=== PATIENT | female | born 2000 | race Two or more races ===

== ENCOUNTER 2024-12-25 22:47 | Emergency (ER) | payer MEDICAID, OTHER ==
[~2024-12-25] VITALS: Ht 152.4 cm; Wt 72.3 kg
--- NOTE | 2024-12-25 23:11 | ED.PDOC ---
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 Patient is a , approximately 10 weeks by LMP. States she has been having scant vaginal discharge for the past week. Three days ago having vaginal spotting, with mild lower abdominal cramping pain. Denies any profuse vaginal bleeding. Denies any fever or urinary symptoms REVIEW OF SYSTEMS: General: No fever, no chills, or fatigue HEENT: No sore throat, no earache, no congestion, no neck pain. Cardiac: No chest pain. No palpitations. Lungs: No shortness of breath, no cough. GI: No nausea, no vomiting, no diarrhea, no constipation, (+) abdominal pain/ cramping : No dysuria, frequency, or urgency. No hematuria. (+) vaginal discharge/ b leeding Musculoskeletal: No joint pain , no joint swelling, no extremity edema. Skin: No rash, no itching. Neuro: No headache, no dizziness, no weakness PHYSICAL EXAM: General: Awake, alert and oriented. No acute distress. Skin: Skin in warm, dry and intact without rashes or lesions. HEENT: The head is normocephalic and atraumatic. Conjunctivae are clear without exudates or hemorrhage. Sclera is non-icteric. Neck: Normal range of motion. No JVD. Cardiac: Regular rate Respiratory: No signs of respiratory distress. No Stridor. Abdominal: Mild suprapubic tenderness to palpation. No guarding or rigidity. Neurological: The patient is awake, alert and oriented to person, place, and time with normal speech. Speech is clear. There is no facial asymmetry. Psychiatric: Appropriate mood and affect. Good judgement and insight. 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 Was a procedure done?: No Differential Diagnosis (SET UP MACHINIST) Vaginal Bleeding: - Missed, - Threatened, Ectopic , UTI X-Ray, Labs, Meds, VS Vital Signs Date Time Temp Pulse Resp B/P (MAP) Pulse Ox O2 Delivery O2 Flow Rate FiO2 12/26/24 01:45 98.4 85 20 122/87 (99) 96 98.4 12/26/24 01:45 95 20 96 Room Air 12/25/24 22:47 98.9 102 18 141/79 100 98.9 Lab Test 12/25/24 23:10 Range/Units White Blood Count 8.4 4.4-10.8 10^3/uL Red Blood Count 4.13 4.0-5.20 10^6/uL Hemoglobin 13.0 12.2-16.2 g/dL Hematocrit 38.2 36.0-46.0 % Mean Corpuscular Volume 92.6 80.0-100.0 fL Mean Corpuscular Hemoglobin 31.4 28.0-32.0 pg Mean Corpuscular Hemoglobin Concent 33.9 32.0-36.0 g/dL Red Cell Distribution Width 12.8 11.8-14.3 % Platelet Count 335 140-450 10^3/uL Mean Platelet Volume 8.0 6.9-10.8 fL Neutrophils (%) (Auto) 62.9 37.0-80.0 % Lymphocytes (%) (Auto) 24.6 10.0-50.0 % Monocytes (%) (Auto) 8.2 0.0-12.0 % Eosinophils (%) (Auto) 3.6 0.0-7.0 % Basophils (%) (Auto) 0.7 0.0-2.0 % Neutrophils # (Auto) 5.3 1.6-8.6 10 ^3/uL Lymphocytes # (Auto) 2.1 0.4-5.4 10 ^3/uL Monocytes # (Auto) 0.7 0-1.3 10 ^3/uL Eosinophils # (Auto) 0.3 0-0.8 10 ^3/uL Basophils # (Auto) 0.1 0-0.2 10 ^3/uL Nucleated Red Blood Cells 0.0 % Urine Color Yellow Yellow Urine Clarity Clear Clear Urine pH 6.0 5.0-9.0 Urine Specific Norris 1.029 1.001-1.035 Urine Protein Negative Negative Urine Ketones Negative Negative Urine Blood Trace H Negative /uL Urine Nitrite Negative Negative Urine Bilirubin Negative Negative Urine Urobilinogen Normal Negative mg/dL Urine Leukocyte Esterase Trace Negative /uL Urine RBC 4 0 - 4 /hpf Urine Microscopic WBC < 1 0-5 /HPF Urine Squamous Epithelial Cells Few <5 /hpf Urine Bacteria None seen None Seen /hpf Urine Mucus Few None Seen Urine Glucose Normal Normal mg/dL Urine Test Positive Negative Sodium Level 139 136-145 mmol/L Potassium Level 3.8 3.5-5.1 mmol/L Chloride Level 104 98-107 mmol/L Carbon Dioxide Level 25 20-31 mmol/L Anion Gap 10 5-15 Blood Urea Nitrogen 9 9-23 mg/dL Creatinine 0.64 0.550-1.02 mg/dL Glomerular Filtration Rate Calc 125 >90 mL/min BUN/Creatinine Ratio 14.1 10.0-20.0 Serum Glucose 95 74-106 mg/dL Calcium Level 9.5 8.7-10.4 mg/dL Beta HCG, Quantitative 20984.3 H 1.5-4.2 mIU/mL Chlamydia trachomatis ([facility]) Pending Neisseria gonorrhoeae ([facility]) Pending OB ULTRASOUND <14 WEEKS: HISTORY: Vaginal Bleeding during TECHNIQUE: Multiple real-time grayscale sonographic images of the pelvis with duplex doppler color flow, spectral and M-mode analysis. COMPARISON: US OB TRANS VAGINAL US on DOS: 12/26/24 FINDINGS: The uterus measures 9.4 x 5.5 x 6.2 cm The cervix is unremarkable Right ovary measures 3.4 X 2.7 X 2.6 cm with normal Doppler color flow. Left ovary measures 4.5 X 3.4 X 4.3 cm with normal Doppler color flow. Left ovarian cyst measuring 3.7 cm IUP single fetus at 6 weeks 4 days average ultrasound age based on mean gestational sac size of 2.05 cm pole not yet seen likely related to the early gestational age. Mary-gestational space: No subchronic hemorrhage. IMPRESSION: Single intrauterine gestational SAC with mean SAC diameter corresponding to a gestational age of 6 weeks 4 days. pole not yet seen. Follow-up recommended. Time of 1ST Reevaluation: 23:06 Reevaluation 1ST: Unchanged Patient Education/Counseling: Need For Follow Up Family Education/Counseling: No Family Present Departure 1 Departure Time of Disposition: 01:27 Impression: Primary Impression: Threatened Disposition: HOME / SELF CARE / HOMELESS Condition: Stable Additional Instructions: ED DISCHARGE INSTRUCTIONS Instructions: Please read all instructions provided in this packet carefully. Although you have been discharged from the Emergency Department, this does not mean that you have a "clean bill of health". No definitive diagnosis for your symptoms has been made today. It is possible that you are in the process of developing a serious illness. This is why you must return to the ED without fail if any new or worsening symptoms (especially if your symptoms include chest pain, trouble breathing, abdominal pain, fever, headache, confusion, trouble seeing, or trouble walking) It is also very important that you see a primary care provider (PCP) or manager water within the next 5-7 days to follow up. You will need a repeat ultrasound. If you are unable to get an appointment, return to the ED for re-evaluation return to the emergency department within 5-7 days. A copy of your ultrasound report is included below. Threatened Miscarriage: Care Instructions Some people have light spotting or bleeding during the first 12 weeks of . In some cases this is normal. Light spotting or bleeding can also be a sign of a possible loss of the . This is called a threatened miscarriage. At this point, the doctor or pharmacist helper may not be able to tell if your vaginal bleeding is normal or is a sign of a miscarriage. In early , things such as exercise and sex do not cause miscarriage. You may be worried or upset about the possibility of losing your . But do not blame yourself. There is no treatment to stop a miscarriage. If you do have a miscarriage, there was nothing you could have done to prevent it. A miscarriage usually means that the is not developing normally. Follow-up care is a thomas part of your treatment and safety. Be sure to make and go to all appointments, and contact your doctor if you are having problems. It's also a good idea to know your test results and keep a list of the medicines you take. How can you care for yourself at home? If you have vaginal bleeding, use pads until you stop bleeding. Take acetaminophen (Tylenol) for cramps. Read and follow all instructions on the label. Don't use nonsteroidal anti-inflammatory drugs (NSAIDs), like ibuprofen, unless your doctor or pharmacist helper says it's okay. Do not have sex until your doctor or pharmacist helper says it is okay. Get lots of rest over the next several days. You may do your normal activities if you feel well enough to do them. But do not do any heavy exercise until your doctor or pharmacist helper says it is okay. Eat a variety of healthy foods. Choose foods high in iron and vitamin C. Foods rich in iron include red meat, shellfish, eggs, beans, and leafy green vegetables. Foods high in vitamin C include citrus fruits, tomatoes, and broccoli. Avoid caffeine, alcohol, and marijuana and other drugs. Dont smoke, vape, or use other tobacco or nicotine products. If you need help quitting, talk to your doctor or pharmacist helper about quit programs and medicines. If you are feeling sad or anxious, talking to family, friends, a counselor, or your doctor or pharmacist helper may help. You can also call the Maternal Mental Health Hotline at 8-586-[facility] ( ) for support. When should you call for help? Call 911 anytime you think you may need emergency care. For example, call if: You have severe vaginal bleeding. You have soaked through one or more pads in an hour, and the bleeding is not slowing down. You have severe pain in your belly or pelvis. You have severe dizziness or lightheadedness, or you passed out (lost co nsciousness). You suddenly feel confused or have trouble staying awake. You have trouble breathing. You feel you cannot stop from hurting yourself or someone else. Where to get help 24 hours a day, 7 days a week If you or someone you know talks about suicide, self-harm, a mental health crisis, a substance use crisis, or any other kind of emotional distress, get help right away. You can: Call or text the Suicide and Crisis Lifeline at 488. Text HOME to 701510 to access the Crisis Text Line. Consider saving these numbers in your phone. Go to [employer] for more information or to chat online. Contact your doctor or pharmacist helper now or seek immediate medical care if: You have heavy vaginal bleeding. This means that you are soaking through one or more pads in an hour. Or you pass blood clots bigger than an egg. You are dizzy or lightheaded, or you feel like you may faint. You have new or worse pain in your belly or pelvis. You have a fever. You have vaginal discharge that smells bad. Watch closely for changes in your health, and be sure to contact your doctor or pharmacist helper if: You do not get better as expected. Credits for Threatened Miscarriage: Care Instructions Current as of: October 19, 2024 Author: [employer] Staff Clinical Review Board All [employer] education is reviewed by a team that includes physicians, nurses, advanced practitioners, registered dieticians, and other healthcare professionals. PROCEDURE(s): OB4US - OB ULTRASOUND COMP LESS 14WKS REASON: Vaginal Bleeding during ORDER NUMBER(s): [id number], ACCESSION NUMBER(s): [id number] OB ULTRASOUND <14 WEEKS: HISTORY: Vaginal Bleeding during TECHNIQUE: Multiple real-time grayscale sonographic images of the pelvis with duplex doppler color flow, spectral and M-mode analysis. COMPARISON: US OB TRANS VAGINAL US on DOS: 12/26/24 FINDINGS: The uterus measures 9.4 x 5.5 x 6.2 cm The cervix is unremarkable Right ovary measures 3.4 X 2.7 X 2.6 cm with normal Doppler color flow. Left ovary measures 4.5 X 3.4 X 4.3 cm with normal Doppler color flow. Left ovarian cyst measuring 3.7 cm IUP single fetus at 6 weeks 4 days average ultrasound age based on mean gestational sac size of 2.05 cm pole not yet seen likely related to the early gestational age. Mary-gestational space: No subchronic hemorrhage. IMPRESSION: Single intrauterine gestational SAC with mean SAC diameter corresponding to a gestational age of 6 weeks 4 days. pole not yet seen. Follow-up recommended. Comments 24-year-old female with vaginal spotting. [place] [address]. Ultrasound shows 6 weeks gestational sac with no pole. Suspected threatened versus blighted ovum. Vital signs stable. Patient is not anemic. Patient is felt stable for discharge home. Patient advised to return to care for repeat ultrasound within 1 week or sooner for any worsening or concerning symptoms. Critical Care Note Critical Care Time?: No Stability Stability form required: No Heart Score Heart Score: Heart Score Response (Comments) Value History N/A 0 EKG N/A 0 Age N/A 0 Risk Factors N/A 0 Troponin N/A 0 Total 0 I personally scribed for KAYLYN TUCKER MD ([email or web address]) on 12/25/24 at 23:11. Electronically submitted by Owen Huffman ([employer]). I personally scribed for KAYLYN TUCKER MD ([email or web address]) on 12/26/24 at 01:25. Electronically submitted by Owen Huffman ([employer]). KAYLYN TUCKER MD Dec 25, 2024 23:11
[2024-12-25 23:26] LABS: Hematocrit 38.2 % (36.0-46.0); Hemoglobin 13.0 g/dL (12.2-16.2); Mean Corpuscular Hemoglobin 31.4 pg (28.0-32.0); Mean Corpuscular Volume 92.6 fL (80.0-100.0); Nucleated Red Blood Cells % 0.0 %
[2024-12-25 23:30] LABS: Chloride 104 mmol/L (98-107); Potassium 3.8 mmol/L (3.5-5.1); Sodium 139 mmol/L (136-145)
[2024-12-25 23:31] LABS: Anion Gap 10 (5-15); Carbon Dioxide 25 mmol/L (20-31)
[2024-12-25 23:32] LABS: Calcium 9.5 mg/dL (8.7-10.4)
[2024-12-25 23:36] LABS: Glucose 95 mg/dL (74-106)
[2024-12-25 23:37] LABS: BUN/Creatinine Ratio 14.1 (10.0-20.0)
[2024-12-25 23:39] LABS: Urine Protein, UAD Negative (Negative)
[2024-12-25 23:41] LABS: Blood Urea Nitrogen 9 mg/dL (9-23)
--- NOTE | 2024-12-26 01:12 | DVH ---
OB ULTRASOUND <14 WEEKS: HISTORY: Vaginal Bleeding during TECHNIQUE: Multiple real-time grayscale sonographic images of the pelvis with duplex doppler color fl ow, spectral and M-mode analysis. COMPARISON: US OB TRANS VAGINAL US on DOS: 12/26/24 FINDINGS: The uterus measures 9.4 x 5.5 x 6.2 cm The cervix is unremarkable Right ovary measures 3.4 X 2.7 X 2.6 cm with normal Doppler color flow. Left ovary measures 4.5 X 3.4 X 4.3 cm with normal Doppler color flow. Left ovarian cyst measuring 3. 7 cm IUP single fetus at 6 weeks 4 days average ultrasound age based on mean gestational sac size of 2.05 cm pole not yet seen likely related to the early gestational age. Mary-gestational space: No subchronic hemorrhage. IMPRESSION: Single intrauterine gestational SAC with mean SAC diameter corresponding to a gestational age of 6 we eks 4 days. pole not yet seen. Follow-up recommended.
[2024-12-26 01:45] VITALS: BP 122/87; PULSE 95; RESP 20; TEMP 98.4; O2SAT 96
[2024-12-29 06:07] LABS: Chlamydia Trachomatis, NAA Negative (Negative); Neisseria gonorrhoeae, NAA Negative (Negative)
== END 2024-12-26 02:30 | disposition home or self-care (01) ==
LOC: ER 22:47
DX: O26.891 Other specified pregnancy related conditions, first trimester (principal); N89.8 Other specified noninflammatory disorders of vagina; R10.2 Pelvic and perineal pain; Z3A.01 Less than 8 weeks gestation of pregnancy
CPT/HCPCS: 36415; 76801; 76817; 80048; 81001; 81025; 84702; 85025; 86850; 86900; 86901